=== PATIENT | female | born 1995 | race African-American/Black ===

== ENCOUNTER 2021-10-25 18:43 | Emergency (ER) | payer OTHER ==
[~2021-10-25] VITALS: Ht 157.5 cm; Wt 63.5 kg
[2021-10-25 18:45] VITALS: BP_SYST 106
--- NOTE | 2021-10-25 18:45 | NUR ---
PT TRIAGED AND PLACED IN LOBBY AWAITING AVAILABLE BED IN MAIN ED
--- NOTE | 2021-10-25 19:59 | NUR ---
PT REPORTS HAVING SORE THROAT PAIN 6/10 FOR THREE DAYS. PT DENIES HAVING SOB OR NAUSEA OR VOMITING. PT REPORTS RECIEVING THE PFIZER VACCINE EARLIER THIS YEAR, NO BOOSTER. 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 PT REPORTS BEING ON HORMONE THERAPY AT THIS TIME, DENIES ANY DAILY PRESCRIPTION MEDS. PT DENIES CHANCE OF . WILL CONTINUE TO MONITOR NEEDED.
[2021-10-25] MEDS ORDERED: ALBUTEROL SULFATE 0.083% 2.5 MG/3 ML VIAL.NEB INH ONE ×2 (20:15)
[2021-10-25] MEDS ORDERED: ALBMDI INH (20:36)
[2021-10-25] MEDS ORDERED: PRED20TA PO (20:36)
[2021-10-25] MEDS ORDERED: predniSONE 20 MG TABLET PO ONE (21:30)
[2021-10-25 21:45] VITALS: BP_SYST 108
--- NOTE | 2021-10-25 21:48 | NUR ---
PT NOTIFIED OF DISCHARGE, PROVIDED WITH DISCHARGE INSTRUCTIONS AND NEW PRESCRIPTION. PT GIVEN EDUCATION REGARDING PRESCRIPTION AND AFTERCARE. ENCOURAGED PT TO FOLLOW UP WITH PRIMARY CARE PHYSICIAN WITHIN THREE DAYS. PT DISCHARGED WITH ALL BELONGINGS, AMBULATORY IN STABLE CONDITION. ALL QUESTIONS ANSWERED.
== END 2021-10-25 21:51 | disposition home or self-care (01) ==
LOC: SED 18:43
DX: J45.901 Unspecified asthma with (acute) exacerbation (principal); J06.9 Acute upper respiratory infection, unspecified; Z20.822 Contact with and (suspected) exposure to COVID-19; Z88.1 Allergy status to other antibiotic agents; Z79.899 Other long term (current) drug therapy
CPT/HCPCS: 71045; 94640; 99283; J7613